=== PATIENT | male | born 1950 | race Caucasian/White ===

== ENCOUNTER 2020-06-10 18:37 | Observation (INO) ==
[2020-06-10 19:54] LABS: Hematocrit 29.3 % (37.5-50.1); Mean Corpuscular HGB Conc 30.7 g/dL (31.6-35.5); Mean Corpuscular Hemoglobin 29.6 pg (28.0-33.3); Mean Corpuscular Volume 96.4 fL (83.0-100.0); Mean Platelet Volume 10.1 fL (9.4-12.4); Platelet Count 102 K/mcL (140-400); Red Blood Count 3.04 M/mcL (4.19-5.50); Red Cell Distribution Width 14.6 % (11.5-14.5); White Blood Count 2.2 K/mcL (4.3-11.1)
[2020-06-10] MEDS ORDERED: Naloxone 0.4 MG/ML INJ IVP PRN (23:54)
[2020-06-10] MEDS ORDERED: Ondansetron 4 MG/2 ML VIAL IVP PRN (23:54)
[2020-06-10] MEDS ORDERED: Acetaminophen 325 MG TABLET PO PRN (23:54)
[2020-06-11] MEDS ORDERED: *HR* Dextrose 50 % in Water (Vial) 50 ML VIAL IVP PRN (05:09)
[2020-06-11] MEDS ORDERED: Dextrose Gel 15 GM/37.5 ML TUBE PO PRN ×2 (05:09)
[2020-06-11] MEDS ORDERED: D5% in Water 1,000 ML IVC PRN (05:09)
[2020-06-11 05:50] LABS: Basophils % 0.4 %; Hemoglobin 8.7 g/dL (12.9-16.9)
[2020-06-11 05:51] LABS: Eosinophils # 0.1 K/mcL (0.0-0.6); Eosinophils % 3.9 %; Immature Granulocytes % 0.4 % (0-4); Immature Platelets 2.5 % (1.1-6.1); Lymphocytes # 0.3 K/mcL (0.6-4.6); Lymphocytes % 11.3 %; Mean Corpuscular HGB Conc 32.2 g/dL (31.6-35.5); Mean Corpuscular Hemoglobin 29.9 pg (28.0-33.3); Mean Corpuscular Volume 92.8 fL (83.0-100.0); Mean Platelet Volume 10.5 fL (9.4-12.4); Monocytes # 0.3 K/mcL (0.0-1.3); Neutrophils # 1.6 K/mcL (1.6-8.9); Red Blood Count 2.91 M/mcL (4.19-5.50); Red Cell Distribution Width 14.3 % (11.5-14.5); White Blood Count 2.3 K/mcL (4.3-11.1)
[2020-06-11 05:52] LABS: INR 1.3; Prothrombin Time 15.1 Seconds (9.4-12.1)
[2020-06-11] MEDS: Insulin LISPRO 300 UNITS/3 ML VIAL SQ SCH ×4 (06:00→19:45)
[2020-06-11 06:05] LABS: Platelet Count 88 K/mcL (140-400)
[2020-06-11 06:38] LABS: Alanine Aminotransferase 30 Units/L (7-52); Albumin 3.1 g/dL (3.5-5.7); Albumin/Globulin Ratio 1.1 (1.1-2.2); Alkaline Phosphatase 67 Units/L (34-104); Aspartate Amino Transferase 34 Units/L (13-39); BUN/Creatinine Ratio 17 (6-26); Bilirubin,Total 0.9 mg/dL (0.3-1.0); Blood Urea Nitrogen 21 mg/dL (8-23); Calcium 8.6 mg/dL (8.6-10.3); Carbon Dioxide 23 mEq/L (23-29); Chloride 106 mEq/L (98-107); Globulin 2.9 g/dL (2.4-3.5); Glucose 164 mg/dL (70-105); Magnesium 1.5 mg/dL (1.6-2.6); Osmolality,Calculated 291 (280-300); Phosphorous 2.9 mg/dL (2.7-4.5); Sodium 137 mEq/L (136-145); eGFR For African Americans > 60 (> 60); eGFR For Non-African Americans 56 (> 60)
[2020-06-11] MEDS: Pantoprazole 40 MG VIAL IVP SCH ×2 (08:42→19:46)
[2020-06-11] MEDS: Gabapentin 300 MG CAPSULE PO SCH ×2 (14:42→19:46)
[2020-06-11] MEDS: carvediloL 6.25 MG TABLET PO SCH (16:51)
[2020-06-11 16:58] LABS: Hematocrit 29.7 % (37.5-50.1); Hemoglobin 9.4 g/dL (12.9-16.9)
[2020-06-11] MEDS: Insulin DETEMIR 100 UNIT/ML X5UNITS SQ SCH (19:45)
[2020-06-12 02:02] LABS: Hemoglobin 8.7 g/dL (12.9-16.9)
[2020-06-12 02:04] LABS: Hematocrit 27.4 % (37.5-50.1); Immature Platelets 2.5 % (1.1-6.1); Mean Corpuscular HGB Conc 31.8 g/dL (31.6-35.5); Mean Corpuscular Hemoglobin 29.5 pg (28.0-33.3); Mean Corpuscular Volume 92.9 fL (83.0-100.0); Mean Platelet Volume 10.3 fL (9.4-12.4); Red Blood Count 2.95 M/mcL (4.19-5.50); Red Cell Distribution Width 14.4 % (11.5-14.5); White Blood Count 1.4 K/mcL (4.3-11.1)
[2020-06-12 02:13] LABS: INR 1.3; Prothrombin Time 15.1 Seconds (9.4-12.1)
[2020-06-12 02:23] LABS: BUN/Creatinine Ratio 14 (6-26); Blood Urea Nitrogen 16 mg/dL (8-23); Carbon Dioxide 23 mEq/L (23-29); Chloride 103 mEq/L (98-107); Glucose 201 mg/dL (70-105); Magnesium 1.5 mg/dL (1.6-2.6); Osmolality,Calculated 283 (280-300); Sodium 133 mEq/L (136-145); eGFR For African Americans > 60 (> 60); eGFR For Non-African Americans > 60 (> 60)
[2020-06-12] MEDS: Insulin LISPRO 300 UNITS/3 ML VIAL SQ SCH ×4 (07:37→21:35)
[2020-06-12] MEDS: Aspirin Enteric Coated 81 MG Tablet PO SCH (09:42)
[2020-06-12] MEDS: allopurinoL 300 MG TABLET PO SCH (09:42)
[2020-06-12] MEDS: carvediloL 6.25 MG TABLET PO SCH ×2 (09:42→16:09)
[2020-06-12] MEDS: Gabapentin 300 MG CAPSULE PO SCH ×3 (09:42→21:03)
[2020-06-12] MEDS: Pantoprazole 40 MG VIAL IVP SCH ×2 (09:42→21:02)
[2020-06-12] MEDS: Insulin DETEMIR 100 UNIT/ML X5UNITS SQ SCH ×2 (09:42→21:03)
[2020-06-12] MEDS ORDERED: SODIUM CHLORIDE/NAHCO3/KCL/PEG 4,000 ML SOLN.RECON PO ONE (10:48)
[2020-06-12] MEDS: Acetaminophen 325 MG TABLET PO PRN (16:20)
[2020-06-13] MEDS: Acetaminophen 325 MG TABLET PO PRN (04:55)
[2020-06-13 07:09] LABS: Hematocrit 26.3 % (37.5-50.1); Hemoglobin 8.7 g/dL (12.9-16.9); Mean Corpuscular HGB Conc 33.1 g/dL (31.6-35.5); Mean Corpuscular Volume 90.7 fL (83.0-100.0); Mean Platelet Volume 10.4 fL (9.4-12.4); Platelet Count 104 K/mcL (140-400); Red Cell Distribution Width 14.2 % (11.5-14.5)
[2020-06-13 07:31] LABS: BUN/Creatinine Ratio 13 (6-26); Blood Urea Nitrogen 18 mg/dL (8-23); Carbon Dioxide 22 mEq/L (23-29); Chloride 101 mEq/L (98-107); Glucose 168 mg/dL (70-105); Magnesium 1.4 mg/dL (1.6-2.6); Osmolality,Calculated 280 (280-300); Potassium 3.5 mEq/L (3.5-5.1); Sodium 132 mEq/L (136-145); eGFR For African Americans > 60 (> 60); eGFR For Non-African Americans 52 (> 60)
[2020-06-13] MEDS: Pantoprazole 40 MG VIAL IVP SCH (07:47)
[2020-06-13] MEDS: Insulin LISPRO 300 UNITS/3 ML VIAL SQ SCH ×2 (07:48→13:00)
[2020-06-13] MEDS: carvediloL 6.25 MG TABLET PO SCH ×2 (10:00→16:27)
[2020-06-13] MEDS: Insulin DETEMIR 100 UNIT/ML X5UNITS SQ SCH (10:00)
[2020-06-13] MEDS ORDERED: Lidocaine -MPF 2% 2 ML VIAL ONE (11:00)
[2020-06-13 11:02] LABS: % Iron Saturation 5 % (20-55); Iron 18 mcg/dL (65-175); Transferrin 280 mg/dL (203-362)
[2020-06-13] MEDS ORDERED: *HR* Midazolam HCl 2 MG/2 ML VIAL ONE (11:14)
[2020-06-13 11:20] LABS: Ferritin 107 ng/mL (20-250)
[2020-06-13] MEDS: Gabapentin 300 MG CAPSULE PO SCH ×2 (11:59→14:18)
[2020-06-13] MEDS: allopurinoL 300 MG TABLET PO SCH (12:47)
[2020-06-13] MEDS: Aspirin Enteric Coated 81 MG Tablet PO SCH (12:47)
[2020-06-13] MEDS ORDERED: Ferumoxytol 510 MG in 0.9 % Sodium Chloride 100 ML IVPB ONE (15:11)
[2020-06-13 16:30] VITALS: BP 152/73
== END 2020-06-13 17:46 | disposition home or self-care (01) ==
LOC: EMEROOARM 18:37 → 2NENU 18:37 → SUATTDRO 22:55 → 2NENU 23:44
PROVIDERS: ADMIT Internal Medicine; ATTEND Internal Medicine
PROC: ENDOCBX (2020-06-13 10:00)